=== PATIENT | female | born 1980 | race Caucasian/White ===

== ENCOUNTER 2018-07-19 16:00 | Emergency (ER) | payer OTHER ==
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
[2018-07-19 16:29] VITALS: BP 129/83; PULSE 94; TEMP 98.3; BMI 23.3
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
[2018-07-19] MEDS ORDERED: IBUPROFEN 400 MG TABLET (FP) PO ONE ×2 (16:56→16:58)
== END 2018-07-19 17:12 | disposition home or self-care (01) ==
LOC: JERFT 16:00
DX: S83.8X1A Sprain of other specified parts of right knee, initial encounter (principal); S80.01XA Contusion of right knee, initial encounter; V49.9XXA Car occupant (driver) (passenger) injured in unspecified traffic accident, initial encounter; Y92.488 Other paved roadways as the place of occurrence of the external cause; Y93.89 Activity, other specified; Y99.8 Other external cause status
CPT/HCPCS: 73564-TC-RT-FY; 99281-25